=== PATIENT | female | born 1975 | race Caucasian/White ===

== ENCOUNTER → 2021-03-05 13:31 | Outpatient (BNVA) | payer BC, SELFPAY | PROVIDERS: Visit Provider Surgery | DX: Z11.52 Encounter for screening for COVID-19 (principal) | CPT/HCPCS: 87635 ==

== ENCOUNTER 2021-03-08 06:50 | Day surgery (SDC) | payer BC, SELFPAY ==
[2021-03-07 14:03] VITALS: BMI 29.2
[2021-03-08] VITALS (12 sets, daily range): BP systolic 104–117; BP diastolic 64–84; PULSE 56–74; RESP 16–26; TEMP 36.3–37.3; O2SAT 89–99
[2021-03-08 07:19] LABS: OR HCG Qualitative Urine Negative (Negative)
--- NOTE | 2021-03-08 07:26 | P.HP_ITS ---
Same Day Surgery H&P Indication for Procedure/HPI DATE OF PROCEDURE: March 08, 2021 CHIEF COMPLAINT/INDICATIONFOR SURGICAL PROCEDURE: incisional hernia repair PREOP DIAGNOSIS: Incisional hernia PLANNED PROCEDRUE: Operation Date: 03/08/21 08:30 Proposed Procedures p Laparoscopic Incisional Hernia Repair 12963 K43.2(Not Applicable) - Chuck Hitchcock MD Medications/Allergies* Home Medications Medication Instructions Recorded Confirmed Type No Known Home Medications 01/29/21 03/07/21 History Allergies/Adverse Reactions Allergy/AdvReac Type Severity Reaction Status Date / Time sulfamethoxazole Allergy Intermediate hives Verified 03/08/21 07:08 [From ] trimethoprim [From Novra] Allergy Intermediate hives Verified 03/08/21 07:08 Pertinent History/Comorbid Conditions* Medical History (Updated 01/29/21 @ 14:45 by Chuck Hitchcock MD) History of umbilical hernia open 2007 Surgical History (Updated 01/29/21 @ 14:46 by Chuck Hitchcock MD) H/O esophagogastroduodenoscopy History of X3 1994 1996 2000 History of gastric bypass open 2000 History of intestinal surgery 2007 Status post colonoscopy Family History (Updated 01/29/21 @ 14:38 by Anabella Greer) Diabetes CAD (coronary artery disease) Dementia Cancer Hypertension Stroke Denies family history of Chronic kidney disease (CKD) Lung disease Social History Smoking and tobacco status: never smoked Second hand smoke exposure: No Alcohol intake: current Alcohol intake frequency: holidays/special occasions only Lives independently: Yes Household members: spouse Marital status: Pertinent Exam Findings alert, oriented x 3 and regular rate & rhythm Recommendations Surgery/Procedure today Coding Level of Care Code Acute Senior Telecommunications Consultant for Leila Roche
[2021-03-08] MEDS: scopolamine 1.5 Patch 1 PATCH TRANSDERMA (07:30)
--- NOTE | 2021-03-08 07:31 | ANES.PREANE2 ---
Pre-Anesthetic Assessment Pre-Anesthetic Assessment: Height/Weight: Height 1.6 m Weight 74.843 kg Temp Pulse Resp BP Pulse Ox 99.1 F 71 18 116/84 99 03/08/21 07:16 03/08/21 07:16 03/08/21 07:16 03/08/21 07:16 03/08/21 07:16 Preop Diagnosis: Incisional hernia Proposed Procedure: Operation Date: 03/08/21 08:30 Proposed Procedures p Laparoscopic Incisional Hernia Repair 22154 K43.2(Not Applicable) - Chuck Hitchcock MD Was Beta Lyndsey taken within 24 hours: N/A Was Clonidine taken within 24 hours: N/A Last intake: Intake Last Liquid Date 03/07/21 Last Liquid Time 22:00 Last Solid Date 03/07/21 Last Solid Time 19:00 Social: Social History: No alcohol and No tobacco Exam: Pre-Anes Outpt Exam: alert, oriented x 3, clear to auscultation bilaterally and regular rate & rhythm Airway: Submandibular: WNL Cervical ROM: WNL MP: 2 Dentition: Full History/ROS: No significant history except as noted Anesthetic Plan: ASA status: 1 Anesthesia: General Risk of > 500 ml blood loss (7ml/kg in children): No PFSH Anesthesia PFSH: Medical History (Updated 01/29/21 @ 14:45 by hCuck Hitchcock MD) History of umbilical hernia open 2008 Surgical History (Updated 01/29/21 @ 14:46 by Chuck Hitchcock MD) H/O esophagogastroduodenoscopy History of X3 1994 1996 2000 History of gastric bypass open 2000 History of intestinal surgery 2007 Status post colonoscopy Family History (Updated 01/29/21 @ 14:38 by Anabella Greer) Other CAD (coronary artery disease) Cancer Dementia Diabetes Hypertension Stroke Denies family history of Chronic kidney disease (CKD) Lung disease Social History (Updated 01/29/21 @ 14:38 by Anabella Greer) Smoking and tobacco status: never smoked Second hand smoke exposure: No Alcohol intake: current Alcohol intake frequency: holidays/special occasions only Lives independently: Yes Household members: spouse Marital status: Data Anesthesia Other Labs: Laboratory Results - last 48 hr 03/08/21 07:18 Urine HCG, Qual Negative Cardiac Studies: No Data to Display
[2021-03-08] MEDS: sodium chloride 0.9% 1,000 ML 30 ML IV (07:40)
--- NOTE | 2021-03-08 09:57 | SUR.OPER ---
0910 family called with update on surgery progress 09 abdominal mesh explanted, inspected by dr cedeño, sent to pathology
--- NOTE | 2021-03-08 10:40 | PM.OP ---
Operative Report Date of procedure: March 08, 2021 Pre-op Diagnosis: Incarcerated recurrent incisional hernia Post-op Diagnosis: Incarcerated recurrent incisional hernia containing omentum Extensive adhesions from 2 prior surgeries involving the colon and small bowel Edge of the mesh had everted with transverse colon adherent to the everted edge 1 cm serosal tear in the transverse colon closed primarily Procedure Done: 1. Laparoscopic lysis of adhesions for 1 hour 2. Laparoscopic repair of recurrent incarcerated incisional hernia with ventralight ST mesh measuring 25 x 20 cm 3. Explantation of mesh Specimens removed/disposition: Explanted mesh Surgeon: Chuck Hitchcock Anesthesia: General Condition: stable Disposition: PACU Procedure: The patient was taken to the Operating Room and was intubated under general anesthesia after the antibiotic had been administered. The abdomen was prepped and draped in a sterile manner. Using a 15 blade, a 2-cm incision was made in the left side in the anterior axillary line at the level of the umbilicus and pneumoperitoneum was created using open Almanzar technique. A 10 mm Nick port was placed and 15 mm of pneumoperitoneum was created after a 10 mm 30? scope had been introduced. 5 mm port was placed at the lower quadrant bilaterallly and in the left upper quadrant under direct visualization. There was transverse colon adherent to the everted edges of the mesh as well as multiple small bowel loops adherent to the abdominal wall and mesh. Using a combination of electrocautery and scissors lysis of adhesions was performed to take down the adherent small bowel loop as well as transverse colon from the mesh. The transverse colon was densely adherent to the everted edge of the mesh and therefore a small piece of the mesh was left on the transverse colon as it was freed. Adjacent to this area there was a serosal tear which measured about 1 cm and was closed with figure of eight 2-0 Vicryl suture. Lysis of adhesions was performed for at least 1 hour. Lysis of adhesions had to be performed superior to the hernia defects in the epigastric area as the liver was adherent to the abdominal wall. The mesh was then excised from the abdominal wall using electrocautery in order to ensure good approximation of new mesh to the abdominal wall. There were a couple of muscular branch bleeders which were controlled with cautery. The mesh was removed using an Endo Catch bag. A spinal needle was introduced through the abdominal wall and the edges of the hernial defect were marked and measured 18 x 8 cm. There were multiple [place] cheese defects along the prior laparotomy scar. A 4 cm margin was marked on the abdominal wall on the outer edge of the hernial defect. 25 x [address] mesh was selected and 4 separate 2-0 [place] sutures were placed at the 4 corners of the mesh. Grannie needle was passed through the stab incisions and used to grasp the free ends of the [place] sutures which were then used to pull the mesh up against the abdominal wall; 5 mm SecurStraps were placed 1 cm apart along the edge of the mesh to hold it against the abdominal wall. At the end of this, it was noted that the mesh was well positioned over the hernial defect. 20 cc of saline mixed with 20cc of Exparel mixed with 20cc of 0.5% Marcaine was infiltrated in the midclavicular line bilaterally under laparoscopic visualization for a TAP block. All ports were removed under direct visualization and there was no bleeding noted from the port sites. The external oblique aponeurosis was approximated at 10mm port site using figure of eight 0 Vicryl suture. The subcutaneous tissue was approximated using 3-0 Vicryl sutures. The skin at all 4 port sites was closed using subcuticular 4-0 Monocryl suture. The stab incisions and the port sites were covered with Dermabond. Abdominal binder was placed at the end of the procedure and the patient was extubated and transferred to recovery room in stable condition.
[2021-03-08] MEDS: fentaNYL 50 mcg/mL INJ 2mL IVP (11:07)
[2021-03-08] MEDS: oxyCODONE-APAP 5-325 mg Tablet 1 TAB PO (11:50)
--- NOTE | 2021-03-08 13:11 | ANE.PACU2 ---
Inpatient post-anesthesia follow up: Airway intact: Yes Vital signs: Temperature 98.4 F Pulse Rate 58 Respiratory Rate 16 Blood Pressure 104/76 Pulse Oximetry 98 Oxygen Delivery Me thod Room Air Oxygen Flow Rate Fraction of Inspir ed Oxygen Hydration adequate: Yes Nausea and vomiting: No Pain level: 2 Mental status: Baseline
== END 2021-03-08 12:55 | disposition home or self-care (01) ==
PROVIDERS: Anesthesiology; Visit Provider Surgery
PROC: 0WQF4ZZ Repair Abdominal Wall, Percutaneous Endoscopic Approach (ICD-10-PCS; CPT 49657; principal; 2021-03-08 08:30)
DX: K43.0 Incisional hernia with obstruction, without gangrene (principal); K66.0 Peritoneal adhesions (postprocedural) (postinfection); Z98.84 Bariatric surgery status; Z82.49 Family history of ischemic heart disease and other diseases of the circulatory system; Z83.3 Family history of diabetes mellitus; Z82.3 Family history of stroke
CPT/HCPCS: 49657; 81025; 84703; 88307; 96365; C1781; C9290; J0690; J1100; J1200; J1885; J2250; J2405; J2704; J2710; J3010; J3490; J7030